=== PATIENT | male | born 1975 ===

== ENCOUNTER 2022-07-05 15:38 | Emergency (ER) | payer SELFPAY ==
[2022-07-05 16:56] VITALS: BP 139/90
[2022-07-05 18:56] LABS: Mucus,Urine FEW /HPF
[2022-07-05 19:43] LABS: Color,Urine Yellow (Yellow)
== END 2022-07-06 17:27 | disposition left against medical advice (07) ==
LOC: ED 15:38
DX: R10.30 Lower abdominal pain, unspecified (principal); Z53.21 Procedure and treatment not carried out due to patient leaving prior to being seen by health care provider
CPT/HCPCS: 81001